=== PATIENT | male | born 1990 | race Caucasian/White ===

== ENCOUNTER 2017-11-23 18:50 | Emergency (ER) | payer MEDICAID ==
--- NOTE | 2017-11-23 20:08 | NUR ---
CALLED IN LOBBY NO ANSWER
--- NOTE | 2017-11-23 20:20 | NUR ---
CALLED NO ANSWER IN LOBBY
== END 2017-11-23 20:47 | disposition left against medical advice (07) ==
LOC: ER 18:52
DX: Z53.21 Procedure and treatment not carried out due to patient leaving prior to being seen by health care provider (principal)

== ENCOUNTER 2017-12-31 16:07 | Emergency (ER) | payer MEDICAID ==
[~2017-12-31] VITALS: Ht 172.7 cm; Wt 59.0 kg
[2017-12-31 16:44] VITALS: BP 132/71
--- NOTE | 2017-12-31 17:03 | NUR ---
MIKE MARTINES IS EVALUATING THE PT.
== END 2017-12-31 17:43 | disposition home or self-care (01) ==
LOC: ER 16:08
DX: M79.675 Pain in left toe(s) (principal); F10.10 Alcohol abuse, uncomplicated
CPT/HCPCS: 73660-TC; A4606; Z7610

== ENCOUNTER 2018-02-05 15:06 | Emergency (ER) | payer SELFPAY ==
[~2018-02-05] VITALS: Ht 170.2 cm; Wt 61.2 kg
[2018-02-05 15:06] VITALS: BP 126/82
== END 2018-02-05 16:13 | disposition home or self-care (01) ==
LOC: ER 15:07
DX: M26.69 Other specified disorders of temporomandibular joint (principal); H92.01 Otalgia, right ear
CPT/HCPCS: 99281; A4606; Z7610; Z7502